=== PATIENT | female | born 1945 | race Caucasian/White ===

== ENCOUNTER → 2016-08-03 12:33 | Outpatient (CLI) | payer MEDICARE | END | disposition home or self-care (01) | LOC: D.CT 12:33 | DX: R10.9 Unspecified abdominal pain (principal) ==

== ENCOUNTER → 2016-08-15 13:57 | Outpatient (CLI) | payer MEDICARE | END | disposition home or self-care (01) | LOC: D.US 13:00 | DX: R59.9 Enlarged lymph nodes, unspecified (principal); R10.2 Pelvic and perineal pain ==